=== PATIENT | male | born 1930 | race Caucasian/White ===

== ENCOUNTER 2016-10-31 11:29 | Inpatient (IN) | payer MEDICARE, BC ==
--- NOTE | 2016-10-31 12:38 | EDM.PDOC ---
ED HPI GI/ABDOMINAL - General Chief Complaint: Gastrointestinal Problem Stated Complaint: BLOOD IN STOOL Time Seen by Provider: 10/31/16 12:35 Source: Reports: Patient, Family History Limitations: Reports: No limitations - History of Present Illness INITIAL COMMENTS - FREE TEXT/NARRATIVE: pt was passing bright red blood yesterday per rectum. Today he is still passing blood but it is dark. he is on coumadin and he was checked 1 month ago. He is not having severe abdomanal pain. He had a similar episode in 2014. He did not have a definite reason found for the bleeding. Timing/Duration: Reports: Day(s): Quality: Reports: burning, cramping Associated Symptoms: Reports: diarrhea, bloody stools - Related Data Allergies/ADRs: Allergies Allergy/AdvReac Type Severity Reaction Status Date / Time No Known Allergies Allergy Verified 10/31/16 12:11 Home Meds: Home Meds Atenolol [Tenormin] 25 mg PO DAILY 04/02/13 [History] *Colon Health 1 cap PO DAILY PRN 05/08/15 [History] *Procera 3 cap PO DAILY 05/08/15 [History] Acetaminophen/Diphenhydramine [Tylenol Pm Ex-Strength Caplet] 1 tab PO BEDTIME 05/08/15 [History] Latanoprost 1 drop TOP BEDTIME 05/08/15 [History] Warfarin Sodium 2.5 mg PO ASDIRECTED 10/31/16 [History] Warfarin Sodium [Warfarin Sodium] 2 mg ASDIRECTED 10/31/16 [History] Past Medical History HEENT History: Reports: Cataract, Retinal detachment Cardiovascular History: Reports: Blood clots/VTE/DVT Other Gastrointestinal History: DYSPHAGIA AT TIMES, RIGHT SIDE HERNIA Other Musculoskeletal History: ARTHRITIS Neurological History: Reports: Other (see below) Other Neuro History: OCCASIONAL HAS RIGHT NOW memory loss Hematologic History: Reports: Blood transfusion(s) - Past Surgical History Other Cardiovascular Surgeries/Procedures: STENT LEG LEG AND URBAN FILTER Other Male Surgeries/Procedures: STONE IN BLADDER REMOVED IN [place] Social & Family History - Tobacco Use Smoking Status *Q: Never Smoker Years of Tobacco use: 5 Packs/Tins Daily: 0 Used Tobacco, but Quit: Yes Month Tobacco Last Used: 1979 Second Hand Smoke Exposure: No - Caffeine Use Caffeine Use: Reports: Coffee - Alcohol Use Days Per Week of Alcohol Use: 0 - Recreational Drug Use Recreational Drug Use: No ED ROS GENERAL - Review of Systems Review Of Systems: See Below Constitutional: Reports: no symptoms, weakness HEENT: Reports: No symptoms Respiratory: Reports: No Symptoms Cardiovascular: Reports: No symptoms Endocrine: Reports: no symptoms GI/Abdominal: Reports: Bloody stool, Diarrhea : Reports: no symptoms ED EXAM, GI/ABD - Physical Exam Exam: See Below Text/Narrative:: Pt is a pleasant alert 86 year old pt who had bright red rectal bleeding yesterday and today his stool has turned quite dark. He does not have abdomanal pain. His lower abdoman feels slightly unsettled. Exam Limited By: No limitations General Appearance: alert, mild distress Eyes: bilateral: normal appearance, EOMI Ears: normal TMs Nose: normal inspection Throat/Mouth: Normal inspection Head: atraumatic Neck: normal inspection Respiratory/Chest: no respiratory distress GI/Abdominal: other ( Mild lower abdomanal tenderness. ) (Male) Exam: Normal inspection Rectal (Males) Exam: Other ( the rectum is full of dark looking blood. ) Back Exam: normal inspection Extremities: normal inspection Neurological: alert, oriented, normal cognition Psychiatric: normal affect Course - Vital Signs Last Recorded V/S: Last Vital Signs Temp 35.5 C 10/31/16 12:18 Pulse 59 L 10/31/16 12:18 Resp 16 10/31/16 12:18 BP 115/67 10/31/16 12:18 Pulse Ox 97 10/31/16 12:18 - Orders/Labs/Meds Orders: Active Orders 24 hr Category Date Time Status UA W/MICROSCOPIC [URIN] Urgent Lab 10/31/16 12:22 Uncollected Sodium Chloride 0.9% [Normal Saline] 1,000 ml Med 10/31/16 12:45 Active IV ASDIRECTED Medication Orders Sodium Chloride (Normal Saline) 1,000 mls @ 400 mls/hr IV ASDIRECTED [facility] Labs: Laboratory Tests 10/31/16 10/31/16 10/31/16 Range/Units 12:36 12:36 12:36 WBC 6.9 (4.5-11.0) K/uL RBC 4.40 (4.30-5.90) M/uL Hgb 12.8 (12.0-15.0) g/dL Hct 40.0 (40.0-54.0) % MCV 91 (80-98) fL MCH 29 (27-31) pg MCHC 32 (32-36) % Plt Count 200 (150-400) K/uL Neut % (Auto) 81 H (36-66) % Lymph % (Auto) 6 L (24-44) % [place] % (Auto) 11 H (2-6) % Eos % (Auto) 2 (2-4) % Baso % (Auto) 1 (0-1) % PT 25.6 H (9.5-12.0) sec INR 2.35 H (0.80-1.20) Sodium 149 H (140-148) mmol/L Potassium 4.9 (3.6-5.2) mmol/L Chloride 112 H (100-108) mmol/L Carbon Dioxide 30 (21-32) mmol/L Anion Gap 11.9 (5.0-14.0) mmol/L BUN 29 H D (7-18) mg/dL Creatinine 0.9 (0.8-1.3) mg/dL Est Cr Clr Drug Dosing TNP Estimated GFR (MDRD) > 60 (>60) Glucose 101 (74-106) mg/dL Calcium 8.4 L (8.5-10.1) mg/dL Total Bilirubin 0.6 (0.2-1.0) mg/dL AST 17 (15-37) U/L ALT 21 (12-78) U/L Alkaline Phosphatase 51 (46-116) U/L C-Reactive Protein (0.0-0.3) mg/dL Total Protein 6.3 L (6.4-8.2) g/dL Albumin 3.4 (3.4-5.0) g/dL Globulin 2.9 (2.3-3.5) g/dL Albumin/Globulin Ratio 1.2 (1.2-2.2) 10/31/16 Range/Units 12:36 WBC (4.5-11.0) K/uL RBC (4.30-5.90) M/uL Hgb (12.0-15.0) g/dL Hct (40.0-54.0) % MCV (80-98) fL MCH (27-31) pg MCHC (32-36) % Plt Count (150-400) K/uL Neut % (Auto) (36-66) % Lymph % (Auto) (24-44) % [place] % (Auto) (2-6) % Eos % (Auto) (2-4) % Baso % (Auto) (0-1) % PT (9.5-12.0) sec INR (0.80-1.20) Sodium (140-148) mmol/L Potassium (3.6-5.2) mmol/L Chloride (100-108) mmol/L Carbon Dioxide (21-32) mmol/L Anion Gap (5.0-14.0) mmol/L BUN (7-18) mg/dL Creatinine (0.8-1.3) mg/dL Est Cr Clr Drug Dosing Estimated GFR (MDRD) (>60) Glucose (74-106) mg/dL Calcium (8.5-10.1) mg/dL Total Bilirubin (0.2-1.0) mg/dL AST (15-37) U/L ALT (12-78) U/L Alkaline Phosphatase (46-116) U/L C-Reactive Protein 0.18 (0.0-0.3) mg/dL Total Protein (6.4-8.2) g/dL Albumin (3.4-5.0) g/dL Globulin (2.3-3.5) g/dL Albumin/Globulin Ratio (1.2-2.2) Meds: Medications Generic Name Dose Route Start Last Admin Trade Name Freq PRN Reason Stop Dose Admin Sodium Chloride 1,000 mls @ 400 mls/hr 10/31/16 12:45 Normal Saline IV ASDIRECTED [facility] - Re-Assessments/Exams Free Text/Narrative Re-Assessment/Exam: 10/31/16 13:09 Pt has a normal hg. His other labs look good. Departure - Departure Time of Disposition: 13:09 Disposition: Admitted As Inpatient 64 Condition: fair Clinical Impression: GI bleeding Forms: ED Department Discharge Care Plan Goals: admit to Dr damian. - My Orders Last 24 Hours: My Active Orders 10/31/16 12:22 UA W/MICROSCOPIC [URIN] Urgent 10/31/16 12:45 Sodium Chloride 0.9% [Normal Saline] 1,000 ml IV ASDIRECTED - Assessment/Plan Last 24 Hours: My Active Orders 10/31/16 12:22 UA W/MICROSCOPIC [URIN] Urgent 10/31/16 12:45 Sodium Chloride 0.9% [Normal Saline] 1,000 ml IV ASDIRECTED
[2016-10-31] MEDS ORDERED: Sodium Chloride 0.9% 1,000 ML IV SCH ×2 (12:45→16:44)
--- NOTE | 2016-10-31 15:41 | PCM.HP ---
H&P History of Present Illness - General Date of Service: 10/31/16 Admit Problem/Dx: Admission Diagnosis/Problem Admission Diagnosis/Problem Gastrointestinal hemorrhage Source of Information: Patient, Family History Limitations: Reports: No limitations - History of Present Illness Initial Comments - Free Text/Narative: Venkatesh presents to the emergency room today with 2 days of persistent bloody bowel movements. He first noticed blood in his stool yesterday and had a fairly large quantity of blood with each of several bowel movements throughout the day. Initially the blood was) and throughout the night and into the morning and has become more of a maroon color. Stools are more loose than watery today and continue to have a fair amount of blood. He does have some mild crampy lower abdominal pain that radiates from the left to the right. He hasn't taken anything to make the pain feel better. Pain seems to be worse preceding bowel movements. He had a similar episode about a year and half ago that resolved without any intervention and colonoscopy was normal. He has not had any nausea, vomiting, shortness of breath or hematochezia. No complaints of fevers or chills. No bleeding issues elsewhere such as epistaxis or hematuria. Workup in the emergency room has revealed a positive Hemoccult, a normal hemoglobin and a fair amount of blood in the rectal vault with digital examination. He is hemodynamically stable but will be admitted for management of an acute gastrointestinal hemorrhage with very concerning sounding story. - Related Data Allergies/Adverse Reactions: Allergies Allergy/AdvReac Type Severity Reaction Status Date / Time No Known Allergies Allergy Verified 10/31/16 12:11 Home Medications: Home Meds Atenolol [Tenormin] 25 mg PO DAILY 04/02/13 [History] *Colon Health 1 cap PO DAILY PRN 05/08/15 [History] *Procera 3 cap PO DAILY 05/08/15 [History] Acetaminophen/Diphenhydramine [Tylenol Pm Ex-Strength Caplet] 1 tab PO BEDTIME 05/08/15 [History] Latanoprost 1 drop TOP BEDTIME 05/08/15 [History] Warfarin Sodium 2.5 mg PO ASDIRECTED 10/31/16 [History] Warfarin Sodium [Warfarin Sodium] 2 mg ASDIRECTED 10/31/16 [History] Past Medical History HEENT History: Reports: Cataract, Retinal detachment Cardiovascular History: Reports: Blood clots/VTE/DVT Other Gastrointestinal History: DYSPHAGIA AT TIMES, RIGHT SIDE HERNIA Other Musculoskeletal History: ARTHRITIS Neurological History: Reports: Other (see below) Other Neuro History: OCCASIONAL HAS RIGHT NOW memory loss Hematologic History: Reports: Blood transfusion(s) - Past Surgical History Other Cardiovascular Surgeries/Procedures: STENT LEG LEG AND URBAN FILTER Other Male Surgeries/Procedures: STONE IN BLADDER REMOVED IN [place] Social & Family History - Family History GI: Denies: GI bleed - Tobacco Use Smoking Status *Q: Never Smoker Years of Tobacco use: 5 Packs/Tins Daily: 0 Used Tobacco, but Quit: Yes Month Tobacco Last Used: 1979 Second Hand Smoke Exposure: No - Caffeine Use Caffeine Use: Reports: Coffee - Alcohol Use Days Per Week of Alcohol Use: 0 - Recreational Drug Use Recreational Drug Use: No H&P Review of Systems - Review of Systems: Review Of Systems: See Below Free Text/Narrative: A complete 12 point review of systems was obtained. Pertinent positives and negatives are noted in the history of present illness. All other systems were reviewed and were negative except as noted. Exam - Exam Exam: See Below - Vital Signs Vital Signs: Last Vital Signs Temp 35.5 C 10/31/16 12:18 Pulse 51 L 10/31/16 14:02 Resp 17 10/31/16 14:02 BP 133/71 10/31/16 14:02 Pulse Ox 95 10/31/16 14:02 Weight: 72.3 kg - Exam Quality Assessment: No: supplemental oxygen, urinary catheter General: alert, oriented, cooperative. No: mild distress HEENT: Conjunctiva clear, Posterior pharynx clear. No: Scleral icterus Neck: supple, trachea midline. No: lymphadenopathy, thyromegaly Lungs: Clear to auscultation, Normal respiratory effort Cardiovascular: regular rate, regular rhythm, systolic murmur Abdomen: normal bowel sounds, soft. No: distention, tenderness Back Exam: normal inspection, full range of motion Extremities: normal inspection, normal pulses. No: cyanosis, edema Peripheral Pulses: 2+: dorsalis pedis (L), dorsalis pedis (R) Skin: warm, dry, intact Neuro Extensive - Mental Status: alert, oriented x3, nl response to commands Neuro Extensive - Motor, Sensory, Reflexes: CN II-XII intact. No: dysarthria, abnormal motor, tremor Psychiatric: alert, normal affect - Patient Data Lab Results last 24 hrs: Laboratory Results - last 24 hr 10/31/16 10/31/16 10/31/16 Range/Units 12:36 12:36 12:36 WBC 6.9 (4.5-11.0) K/uL RBC 4.40 (4.30-5.90) M/uL Hgb 12.8 (12.0-15.0) g/dL Hct 40.0 (40.0-54.0) % MCV 91 (80-98) fL MCH 29 (27-31) pg MCHC 32 (32-36) % Plt Count 200 (150-400) K/uL Neut % (Auto) 81 H (36-66) % Lymph % (Auto) 6 L (24-44) % [place] % (Auto) 11 H (2-6) % Eos % (Auto) 2 (2-4) % Baso % (Auto) 1 (0-1) % PT 25.6 H (9.5-12.0) sec INR 2.35 H (0.80-1.20) Sodium 149 H (140-148) mmol/L Potassium 4.9 (3.6-5.2) mmol/L Chloride 112 H (100-108) mmol/L Carbon Dioxide 30 (21-32) mmol/L Anion Gap 11.9 (5.0-14.0) mmol/L BUN 29 H D (7-18) mg/dL Creatinine 0.9 (0.8-1.3) mg/dL Est Cr Clr Drug Dosing TNP Estimated GFR (MDRD) > 60 (>60) Glucose 101 (74-106) mg/dL Calcium 8.4 L (8.5-10.1) mg/dL Total Bilirubin 0.6 (0.2-1.0) mg/dL AST 17 (15-37) U/L ALT 21 (12-78) U/L Alkaline Phosphatase 51 (46-116) U/L C-Reactive Protein (0.0-0.3) mg/dL Total Protein 6.3 L (6.4-8.2) g/dL Albumin 3.4 (3.4-5.0) g/dL Globulin 2.9 (2.3-3.5) g/dL Albumin/Globulin Ratio 1.2 (1.2-2.2) Urine Color Urine Appearance Urine pH (4.5-8.0) Ur Specific [place] (1.008-1.030) Urine Protein (NEGATIVE) mg/dL Urine Glucose (UA) (NEGATIVE) mg/dL Urine Ketones (NEGATIVE) mg/dL Urine Occult Blood (NEGATIVE) Urine Nitrite (NEGAITVE) Urine Bilirubin (NEGATIVE) Urine Urobilinogen (NORMAL) mg/dL Ur Leukocyte Esterase (NEGATIVE) Urine RBC (0-5) Urine WBC (0-5) Ur Epithelial Cells Amorphous Sediment Urine Bacteria Urine Mucus Urine Other 10/31/16 10/31/16 Range/Units 12:36 13:14 WBC (4.5-11.0) K/uL RBC (4.30-5.90) M/uL Hgb (12.0-15.0) g/dL Hct (40.0-54.0) % MCV (80-98) fL MCH (27-31) pg MCHC (32-36) % Plt Count (150-400) K/uL Neut % (Auto) (36-66) % Lymph % (Auto) (24-44) % [place] % (Auto) (2-6) % Eos % (Auto) (2-4) % Baso % (Auto) (0-1) % PT (9.5-12.0) sec INR (0.80-1.20) Sodium (140-148) mmol/L Potassium (3.6-5.2) mmol/L Chloride (100-108) mmol/L Carbon Dioxide (21-32) mmol/L Anion Gap (5.0-14.0) mmol/L BUN (7-18) mg/dL Creatinine (0.8-1.3) mg/dL Est Cr Clr Drug Dosing Estimated GFR (MDRD) (>60) Glucose (74-106) mg/dL Calcium (8.5-10.1) mg/dL Total Bilirubin (0.2-1.0) mg/dL AST (15-37) U/L ALT (12-78) U/L Alkaline Phosphatase (46-116) U/L C-Reactive Protein 0.18 (0.0-0.3) mg/dL Total Protein (6.4-8.2) g/dL Albumin (3.4-5.0) g/dL Globulin (2.3-3.5) g/dL Albumin/Globulin Ratio (1.2-2.2) Urine Color Yellow Urine Appearance Clear Urine pH 5.0 (4.5-8.0) Ur Specific [place] 1.025 (1.008-1.030) Urine Protein Negative (NEGATIVE) mg/dL Urine Glucose (UA) Normal (NEGATIVE) mg/dL Urine Ketones Negative (NEGATIVE) mg/dL Urine Occult Blood Negative (NEGATIVE) Urine Nitrite Negative (NEGAITVE) Urine Bilirubin Small (NEGATIVE) Urine Urobilinogen Normal (NORMAL) mg/dL Ur Leukocyte Esterase Negative (NEGATIVE) Urine RBC 0-5 (0-5) Urine WBC 0-5 (0-5) Ur Epithelial Cells Rare Amorphous Sediment Not seen Urine Bacteria Rare Urine Mucus Moderate Urine Other Result Diagrams: 10/31/16 12:36 10/31/16 12:36 Miquel Results last 24 hrs: Microbiology 10/31/16 12:53 Stool Occult Blood (MIQUEL) - Final Stool / Feces *Q Meaningful Use (ADM) - VTE *Q VTE Criteria *Q: VTE Pharmacological Contraindications *Q: Active Hemorrhage - Stroke *Q Stroke Criteria *Q: - AMI *Q AMI Criteria *Q: - Problem List (1) Acute lower gastrointestinal hemorrhage SNOMED Code(s): 59226519 ICD Code: K92.2 - GASTROINTESTINAL HEMORRHAGE, UNSPECIFIED Status: Acute Current Visit: No (2) History of DVT (deep vein thrombosis) SNOMED Code(s): 338076414 ICD Code: Z86.718 - PERSONAL HISTORY OF OTHER VENOUS THROMBOSIS AND EMBOLISM Status: Chronic Current Visit: No Problem List Initiated/Reviewed/Updated: Yes Orders Last 24hrs: Active Orders 24 hr Category Date Time Status Patient Status Manage Transfer [TRANSFER] Routine ADT 10/31/16 15:32 Ordered Sodium Chloride 0.9% [Normal Saline] 1,000 ml Med 10/31/16 12:45 Active IV ASDIRECTED Resuscitation Status Routine Resus Stat 10/31/16 15:33 Ordered Medication Orders Sodium Chloride (Normal Saline) 1,000 mls @ 400 mls/hr IV ASDIRECTED [facility] Last Admin: 10/31/16 13:08 Dose: 400 mls/hr Assessment/Plan Comment:: Assessment and plan - Acute gastrointestinal hemorrhage, probably lower - history of similar that responded to reversing his INR. Colonoscopy at that time revealed diverticulosis but no other acute pathology. INR is in the normal range. No other pathological bleeding at this time. Currently hemodynamically stable and his hemoglobin in the emergency room was normal. 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 This is his second bleeding event. -Hold warfarin -Reverse INR Maintenance issues - - DVT prophylaxis - mechanical with active hemorrhage - GI prophylaxis - PPI - Nutrition - regular diet - [place] catheter - not indicated CODE STATUS - DO NOT RESUSCITATE/DO NOT INTUBATE Admission justification - This patient will be admitted for inpatient services and is medically appropriate meeting medical necessity for inpatient admission as outlined in my documentation. I reasonably expect the patient will require inpatient services that span a period time over 2 midnights. I reasonably expect this patient to be discharged or transferred within 96 hours [facility]. Disposition - anticipate discharge to home after the hospital stay Primary care physician - Dr. Cory Johnson M.D.
[2016-10-31] MEDS ORDERED: Ondansetron 4 MG/2 ML SDV IV PRN (16:44)
[2016-10-31] MEDS ORDERED: Polyethylene Glycol 3350 Powder 17 GM Packet PO PRN (16:44)
[2016-10-31] MEDS ORDERED: Ondansetron 4 MG Tab.DIS PO PRN (16:44)
[2016-10-31] MEDS ORDERED: Acetaminophen 325 MG Tab PO PRN (16:44)
[2016-10-31] MEDS ORDERED: Phytonadione ORAL 5mg/5ml Soln Simple Syrup U/D PO ONE (17:30)
[2016-10-31] MEDS ORDERED: Latanoprost 0.005% Ophth Soln 2.5 ML Bottle EYEBOTH SCH (21:00)
[2016-10-31] MEDS ORDERED: diphenhydrAMINE 25 MG Cap PO SCH (21:00)
[2016-10-31] MEDS ORDERED: Acetaminophen 500 MG Tab PO SCH (21:00)
[2016-11-01] MEDS ORDERED: Atenolol 25 MG Tab PO SCH (09:00)
[2016-11-01 12:09] VITALS: BP 153/66
--- NOTE | 2016-11-01 14:46 | PCM.DCSUM1 ---
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 He was admitted for management of presumed acute lower gastrointestinal hemorrhage - Discharge Data Discharge Date: 11/01/16 Discharge Disposition: Home, Self-Care 01 Condition: Good - Discharge Diagnosis/Problem(s) (1) Acute lower gastrointestinal hemorrhage SNOMED Code(s): 47010334 ICD Code: K92.2 - GASTROINTESTINAL HEMORRHAGE, UNSPECIFIED Status: Resolved Current Visit: No (2) History of DVT (deep vein thrombosis) SNOMED Code(s): 304830378 ICD Code: Z86.718 - PERSONAL HISTORY OF OTHER VENOUS THROMBOSIS AND EMBOLISM Status: Chronic Current Visit: No - Patient Summary/Data Hospital Course: Venkatesh presented to the emergency room with bright red blood per rectum over the past 24 hours. Workup in the emergency room was remarkable for a normal hemoglobin, positive Hemoccult and a fair amount of blood in the initial stool in the emergency room. There was concern for acute potentially life- threatening hemorrhage and she was admitted to the hospital for further management. He was admitted to the intensive care unit and received a dose of oral vitamin K. He was started on IV fluids and cardiac monitoring. Overnight following admission he did not have additional stools that contained blood or had the appearance of melena. There were no abnormalities or concerning findings with vitals or telemetry monitoring. Serial hemoglobin levels have all been stable around 12. He does not have significant abdominal pain. He did have a bowel movement this morning that was normal and did not contain any blood. His INR this morning is 1.9 after receiving a dose of vitamin K. He has no abdominal pain, nausea or vomiting. This episode is very similar to his episode about a year and a half ago. I suspect again that he has diverticular bleeding which has resolved. Given his advanced age I believe that additional intervention or even a workup with a colonoscopy at this point has risks that outweigh the benefits. He is in agreement with this plan. We're going to hold his warfarin through the weekend and he will restart on Saturday. It may be a good idea to review with his primary care provider the indications for the warfarin and decide if he still needs it or not but for now we will continue the medication. He is interested in going home this afternoon since he is feeling well and has not had additional bleeding. I believe he should be safe at this point with no bleeding in the past 24 hours. He'll be discharged home with the plan to hold his warfarin for 3 days and then restart on Saturday. He will need his INR checked in approximately 10 days. Venkatesh was admitted to inpatient status with the anticipation that his management would take at least 2 midnights before we would have a safe discharge plan. He improved much quicker than expected and is ready for discharge after only one midnights. This was an unanticipated improvement. - Patient Instructions Diet: Regular Diet as Tolerated Activity: As Tolerated Driving: May Drive Today Showering/Bathing: May Shower Notify Provider of: Fever, Increased Pain, Nausea and/or Vomiting Other/Special Instructions: 1. You were in the hospital for management of an acute lower gastrointestinal bleed. I suspect that this bleed came from a blood vessel located inside a diverticulum. The bleeding has stopped without any intervention other than stopping your warfarin and giving you a small dose of vitamin K. I would recommend that you not take your warfarin on Saturday, Saturday or Saturday. You can start taking your warfarin again on Saturday. You should followup next Saturday with Joellen in the Coumadin clinic for a repeat INR. 2. Continue your other medications as previously prescribed. 3. Please seek medical attention if you develop fever greater than 101, nausea or vomiting , severe abdominal pain or the bleeding in your stool returns. - Discharge Plan Home Medications: Home Meds Atenolol [Tenormin] 25 mg PO DAILY 04/02/13 [History] *Colon Health 1 cap PO DAILY PRN 05/08/15 [History] *Procera 3 cap PO DAILY 05/08/15 [History] Acetaminophen/Diphenhydramine [Tylenol Pm Ex-Strength Caplet] 1 tab PO BEDTIME 05/08/15 [History] Latanoprost 1 drop TOP BEDTIME 05/08/15 [History] Warfarin Sodium 2 mg ASDIRECTED 10/31/16 [History] Warfarin Sodium 2.5 mg PO ASDIRECTED 10/31/16 [History] Patient Handouts: Gastrointestinal Bleeding, Constipation, Adult Referrals: Koko Ray MD [Primary Care Provider] - (f/u in 1-2 weeks - followup hospital stay for acute gastrointestinal bleed. Consider rechecking hemoglobin) - Discharge Summary/Plan Comment DC Time >30 min.: No (25) - Patient Data Vitals - Most Recent: Last Vital Signs Temp 36.4 C 11/01/16 12:00 Pulse 59 L 10/31/16 18:57 Resp 20 11/01/16 12:00 BP 153/66 H 11/01/16 12:00 Pulse Ox 96 11/01/16 12:00 Weight - Most Recent: 72.3 kg I&O - Last 24 hours: Intake & Output 10/31/16 11/01/16 11/01/16 22:59 06:59 14:59 Intake Total 1000 720 Output Total 200 Balance 1000 520 Lab Results - Last 24 hrs: Laboratory Results - last 24 hr 10/31/16 11/01/16 11/01/16 Range/Units 20:00 04:45 04:45 WBC 5.4 (4.5-11.0) K/uL RBC 4.08 L (4.30-5.90) M/uL Hgb 12.5 11.9 L (12.0-15.0) g/dL Hct 37.2 L (40.0-54.0) % MCV 91 (80-98) fL MCH 29 (27-31) pg MCHC 32 (32-36) % Plt Count 173 (150-400) K/uL PT 20.7 H (9.5-12.0) sec INR 1.91 H (0.80-1.20) Sodium (140-148) mmol/L Potassium (3.6-5.2) mmol/L Chloride (100-108) mmol/L Carbon Dioxide (21-32) mmol/L Anion Gap (5.0-14.0) mmol/L BUN (7-18) mg/dL Creatinine (0.8-1.3) mg/dL Est Cr Clr Drug Dosing mL/min Estimated GFR (MDRD) (>60) Glucose (74-106) mg/dL Calcium (8.5-10.1) mg/dL 11/01/16 Range/Units 04:45 WBC (4.5-11.0) K/uL RBC (4.30-5.90) M/uL Hgb (12.0-15.0) g/dL Hct (40.0-54.0) % MCV (80-98) fL MCH (27-31) pg MCHC (32-36) % Plt Count (150-400) K/uL PT (9.5-12.0) sec INR (0.80-1.20) Sodium 147 (140-148) mmol/L Potassium 4.4 (3.6-5.2) mmol/L Chloride 113 H (100-108) mmol/L Carbon Dioxide 27 (21-32) mmol/L Anion Gap 11.4 (5.0-14.0) mmol/L BUN 24 H (7-18) mg/dL Creatinine 0.9 (0.8-1.3) mg/dL Est Cr Clr Drug Dosing 58.02 mL/min Estimated GFR (MDRD) > 60 (>60) Glucose 84 (74-106) mg/dL Calcium 7.9 L (8.5-10.1) mg/dL Med Orders - Current: Current Medications Acetaminophen (Tylenol) 650 mg PO Q4H PRN PRN Reason: Pain (Mild 1-3)/fever Acetaminophen (Tylenol Extra Strength) 500 mg PO BEDTIME [facility] Last Admin: 10/31/16 20:23 Dose: 500 mg Atenolol (Tenormin) 25 mg PO DAILY [facility] Last Admin: 11/01/16 08:10 Dose: 25 mg Diphenhydramine HCl (Benadryl) 25 mg PO BEDTIME [facility] Last Admin: 10/31/16 20:23 Dose: 25 mg Latanoprost (Xalatan 0.005% Ophth Soln) 0 ml EYEBOTH BEDTIME [facility] Last Admin: 10/31/16 20:23 Dose: 1 drop Ondansetron HCl (Zofran Odt) 4 mg PO Q6H PRN PRN Reason: Nausea able to take PO Ondansetron HCl (Zofran) 4 mg IV Q6H PRN PRN Reason: Nausea/Vomiting Polyethylene Glycol (Miralax) 17 gm PO DAILY PRN PRN Reason: Constipation Discontinued Medications Sodium Chloride (Normal Saline) 1,000 mls @ 400 mls/hr IV ASDIRECTED [facility] Last Admin: 10/31/16 13:08 Dose: 400 mls/hr Sodium Chloride (Normal Saline) 1,000 mls @ 75 mls/hr IV ASDIRECTED [facility] Last Admin: 11/01/16 06:09 Dose: 75 mls/hr Phytonadione (Aquamephyton) 2.5 mg PO ONETIME ONE Stop: 10/31/16 17:31 Last Admin: 10/31/16 18:05 Dose: 2.5 mg *Q Meaningful Use (DIS) - VTE *Q VTE Criteria *Q: VTE Pharmacological Contraindications *Q: Active Hemorrhage - Stroke *Q Stroke Criteria *Q: - AMI *Q AMI Criteria *Q:
== END 2016-11-01 16:40 | disposition home or self-care (01) | DRG 379 ==
LOC: JP.ED 11:29 → JP.ICU 15:32
PROVIDERS: ADMIT Internal Medicine; ATTEND Internal Medicine
DX: K92.2 Gastrointestinal hemorrhage, unspecified (principal); Z79.01 Long term (current) use of anticoagulants; I48.91 Unspecified atrial fibrillation; Z86.718 Personal history of other venous thrombosis and embolism; H26.9 Unspecified cataract; M19.90 Unspecified osteoarthritis, unspecified site
CPT/HCPCS: 36415; 80053; 81001; 82272; 85025; 85610; 86140; J7040; 80048; 85018; 85027; 96360; 96361; 99285; 99285-25; A9270-GY